=== PATIENT | female | born 1995 | race Caucasian/White ===

== ENCOUNTER 2017-08-01 16:57 | Emergency (ER) | payer BC, MEDICAID ==
[2017-08-01 17:13] VITALS: BP 133/82
--- NOTE | 2017-08-01 17:29 | EDM.PDOC ---
ED HPI GENERAL MEDICAL PROBLEM - General Chief Complaint: Lower Extremity Injury/Pain Stated Complaint: Right foot pain Time Seen by Provider: 08/01/17 17:10 Source of Information: Reports: Patient, Family, RN, RN Notes Reviewed History Limitations: Reports: No Limitations - History of Present Illness INITIAL COMMENTS - FREE TEXT/NARRATIVE: Patient presents to the ED at [facility] with worsening pain of the right foot. Patient states she sustained a 5th metatarsal fracture Jun 08. She was placed in a CAM walker since the injury. She has been following up with her PCP every couple of weeks with xrays. Patient states she is told the fracture is not healing correctly, so she is schedule to see a Manhole Stripper in a couple of weeks. Patient states the pain is unbareable and has been progressively getting worse. She has been using her CAM walker, but the pain today caused her to leave work. Onset: Gradual Duration: Getting Worse Location: Reports: Lower Extremity, Right Quality: Reports: Stabbing, Throbbing Severity: Moderate Improves with: Reports: Rest Worsens with: Reports: Movement Context: Reports: Trauma Associated Symptoms: Reports: No Other Symptoms Treatments [employer]: Reports: Acetaminophen, NSAIDS Right Feet Pain Score (Numeric/FACES): 9 - Related Data Allergies Allergy/AdvReac Type Severity Reaction Status Date / Time cephalexin [Cephalexin] Allergy Intermediate Rash Verified 08/01/17 17:07 latex Allergy Itching Verified 08/01/17 17:07 montelukast sodium Allergy Rash Verified 08/01/17 17:07 [From Singulair] Sulfa (Sulfonamide Allergy Fever Verified 08/01/17 17:07 Antibiotics) adhesives Allergy Mild Redness Uncoded 09/10/14 18:17 Home Meds: Home Meds Acetaminophen [Acetaminophen Extra Strength] 1,000 mg PO TID 11/01/14 [History] Naproxen 375 mg PO BID 08/01/17 [History] Past Medical History - Past Health History Medical/Surgical History: Denies Medical/Surgical History Musculoskeletal History: Reports: Fracture Social & Family History - Tobacco Use Smoking Status *Q: Current Every Day Smoker Years of Tobacco use: 7 Packs/Tins Daily: 0.5 Used Tobacco, but Quit: No Second Hand Smoke Exposure: Yes - Alcohol Use Days Per Week of Alcohol Use: 0 - Recreational Drug Use Recreational Drug Use: No Drug Use in Last 12 Months: Yes Recreational Drug Type: Reports: Marijuana/Hashish Recreational Drug Use Frequency: Rarely - Living Situation & Occupation Living situation: Reports: with Family Occupation: Student Review of Systems - Review of Systems Review Of Systems: See Below Constitutional: Denies: Chills, Fever, Weakness Respiratory: Denies: Shortness of Breath, Cough Cardiovascular: Denies: Chest Pain, Palpitations Musculoskeletal: Reports: Foot Pain Skin: Reports: No Symptoms Neurological: Reports: No Symptoms. Denies: Numbness, Paresthesia, Tingling ED EXAM, GENERAL - Physical Exam Exam: See Below Exam Limited By: No Limitations General Appearance: Alert, No Apparent Distress Respiratory/Chest: No Respiratory Distress, Lungs Clear, Normal Breath Sounds Cardiovascular: Normal Peripheral Pulses, Regular Rate, Rhythm Peripheral Pulses: 2+: Posterior Tibial (R), Dorsalis Pedis (R) Extremities: Normal Inspection, Normal Capillary Refill, Limited Range of Motion , Other (swelling along the lateral right foot; no obvious bone deformity; no erythema; tender to palpation). No: Increased Warmth, Pallor Neurological: Alert, Oriented Skin Exam: Warm, Dry, Intact, Normal Color, No Rash Course - Vital Signs Last Recorded V/S: Last Vital Signs Temp 37.5 C 08/01/17 17:09 Pulse 118 H 08/01/17 17:09 Resp 16 08/01/17 17:09 BP 133/82 08/01/17 17:09 Pulse Ox 99 08/01/17 17:09 - Orders/Labs/Meds Orders: Active Orders 24 hr Category Date Time Status Foot wo Cont Rt [CT] Stat Exams 08/01/17 17:22 Taken - Radiology Interpretation Free Text/Narrative:: CT Foot: Acute nondisplaced avulsion fracture in the posterior tubercle of the 5th metatarsal. Radiograph of the foot would be of benefit to get a better overview of the osseous structures and to serve as a baseline for potential follow up. See scanned report in EMR CT Results Date: 08/01/17 CT Results Time: 17:50 Departure - Departure Time of Disposition: 17:57 Disposition: Home, Self-Care 01 Condition: Good Clinical Impression: Avulsion fracture of metatarsal bone of right foot Qualifiers: Encounter type: sequela Fracture type: closed Qualified Code(s): S92.301S - Fracture of unspecified metatarsal bone(s), right foot, sequela - Discharge Information Instructions: Metatarsal Fracture, Avulsion Fracture of the Foot Referrals: Teresa Mckay PA-C [Primary Care Provider] - Forms: ED Department Discharge Additional Instructions: 1. Stay well hydrated and rest 2. Take pain medication sparingly, this can make you drowsy 3. May continue to alternate Tylenol/Advil as needed 4. Keep appointment with Manhole Stripper as scheduled 5. See your Primary as symptoms warrant 6. Call with any questions - Problem List Review Problem List Initiated/Reviewed/Updated: Yes - My Orders Last 24 Hours: My Active Orders 08/01/17 17:22 Foot wo Cont Rt [CT] Stat - Assessment/Plan Last 24 Hours: My Active Orders 08/01/17 17:22 Foot wo Cont Rt [CT] Stat Plan: Patient to be discharge home. Recommend keeping appointment with Podiatry already scheduled with Alfredo. Will send take home pack of Tramadol. Continue with CAM walker boot. Should see her primary again if additional pain medication is needed.
[2017-08-01] MEDS ORDERED: Take Home: traMADol 50 MG, 4 Tab Pack PO ONE (18:00)
== END 2017-08-01 18:05 | disposition home or self-care (01) ==
LOC: VM.ED 16:57
DX: S92.351S Displaced fracture of fifth metatarsal bone, right foot, sequela (principal); F17.210 Nicotine dependence, cigarettes, uncomplicated; Z91.040 Latex allergy status; Z88.8 Allergy status to other drugs, medicaments and biological substances; X58.XXXS Exposure to other specified factors, sequela
CPT/HCPCS: 73700; 99283; A9270

== ENCOUNTER 2018-01-18 18:50 | Emergency (ER) | payer MEDICAID ==
[2018-01-18] MEDS ORDERED: Take Home: Naproxen 500 MG Tab, 4 Tab Pack PO ONE (19:16)
--- NOTE | 2018-01-18 20:08 | EDM.PDOC ---
ED HPI GENERAL MEDICAL PROBLEM - General Chief Complaint: Back Pain or Injury Stated Complaint: mid back pain Time Seen by Provider: 01/18/18 19:45 Source of Information: Reports: Patient History Limitations: Reports: No Limitations - History of Present Illness INITIAL COMMENTS - FREE TEXT/NARRATIVE: Pt. states that she lifted a 20-30# box at work. She is an employee of [employer]. Pt. states that she immediately began experiencing pain to the mid region of her back. Denies numbness/tingling in her extremities. Denies any other recent trauma Onset: Today Location: Reports: Back Quality: Reports: Ache Severity: Moderate - Related Data Allergies Allergy/AdvReac Type Severity Reaction Status Date / Time cephalexin [Cephalexin] Allergy Intermediate Rash Verified 01/18/18 19:37 latex Allergy Itching Verified 01/18/18 19:37 montelukast sodium Allergy Rash Verified 01/18/18 19:37 [From Singulair] Sulfa (Sulfonamide Allergy Fever Verified 01/18/18 19:37 Antibiotics) adhesives Allergy Mild Redness Uncoded 01/18/18 19:37 Home Meds: Home Meds Lurasidone HCl [Latuda] 20 mg PO DAILY 10/08/17 [History] lamoTRIgine [Lamotrigine] 300 mg PO DAILY 10/08/17 [History] Past Medical History - Past Health History Medical/Surgical History: Denies Medical/Surgical History Respiratory History: Reports: Asthma Musculoskeletal History: Reports: Fracture Psychiatric History: Reports: Anxiety, Bipolar, Depression - Past Surgical History HEENT Surgical History: Reports: Adenoidectomy, Tonsillectomy Social & Family History - Tobacco Use Smoking Status *Q: Current Every Day Smoker Years of Tobacco use: 7 Packs/Tins Daily: 0.5 Used Tobacco, but Quit: No Second Hand Smoke Exposure: Yes - Alcohol Use Days Per Week of Alcohol Use: 0 - Recreational Drug Use Recreational Drug Use: No Drug Use in Last 12 Months: Yes Recreational Drug Type: Reports: Marijuana/Hashish Other Recreational Drug Type: Tried marijuana. Nothing at all in the last year. Recreational Drug Use Frequency: Rarely - Living Situation & Occupation Living situation: Reports: with Family Occupation: Student ED ROS GENERAL - Review of Systems Review Of Systems: See Below Constitutional: Reports: No Symptoms GI/Abdominal: Reports: No Symptoms : Reports: No Symptoms Musculoskeletal: Reports: Back Pain (mid back pain) Skin: Reports: No Symptoms Neurological: Reports: No Symptoms ED EXAM, GENERAL - Physical Exam Exam: See Below Exam Limited By: No Limitations General Appearance: Alert, WD/WN, No Apparent Distress Back Exam: Muscle Spasm, Other (thoracic level back pain) Extremities: Normal Inspection, Normal Range of Motion, Non-Tender, Normal Capillary Refill, No Pedal Edema Neurological: Alert, Oriented, CN II-XII Intact, Normal Cognition, Normal Gait, Normal Reflexes, No Motor/Sensory Deficits Course - Orders/Labs/Meds Meds: Medications Discontinued Medications Generic Name Dose Route Start Last Admin Trade Name Freq PRN Reason Stop Dose Admin Naproxen 1 packet 01/18/18 19:16 01/18/18 19:40 Take Home: Naproxen 500 Mg, 4 Tab Pack PO 01/18/18 19:17 1 packet ONETIME ONE Administration Departure - Departure Time of Disposition: 07:30 Disposition: Home, Self-Care 01 Condition: Good Clinical Impression: Thoracic back sprain - Discharge Information Instructions: Thoracic Strain, [id number] Forms: ED Department Discharge Additional Instructions: Naproxen 500mg twice daily for 10 days Ice back for 10-15 min every 1-2 hours Follow-up in clinic in 10-14 days, sooner if not improving.
[2018-01-19 03:05] VITALS: BP 112/72
== END 2018-01-18 19:49 | disposition home or self-care (01) ==
LOC: VM.ED 18:50
DX: S23.3XXA Sprain of ligaments of thoracic spine, initial encounter (principal); J45.909 Unspecified asthma, uncomplicated; F17.210 Nicotine dependence, cigarettes, uncomplicated; Z91.040 Latex allergy status; Z88.1 Allergy status to other antibiotic agents; Z88.8 Allergy status to other drugs, medicaments and biological substances; Z88.2 Allergy status to sulfonamides; Z91.048 Other nonmedicinal substance allergy status; Z79.899 Other long term (current) drug therapy; X50.9XXA Other and unspecified overexertion or strenuous movements or postures, initial encounter; Y93.89 Activity, other specified; Y99.0 Civilian activity done for income or pay
CPT/HCPCS: 99283; A9270

== ENCOUNTER 2018-06-27 13:54 | Inpatient (IN) | payer MEDICAID ==
[2018-06-27] MEDS ORDERED: methylPREDNISolone Sodium Succinate 40 MG/1 ML SDV IVPUSH ONE (14:06)
[2018-06-27] MEDS ORDERED: Albuterol 0.083% 2.5 MG/3 ML Neb Soln NEB PRN (14:06)
[2018-06-27] MEDS ORDERED: Sodium Chloride 0.9% 10 ML Syringe FLUSH PRN (14:07)
--- NOTE | 2018-06-27 14:10 | PCM.HP ---
H&P History of Present Illness - General Date of Service: 06/27/18 Admit Problem/Dx: Admission Diagnosis/Problem Admission Diagnosis/Problem Asthma with acute exacerbation Source of Information: Patient History Limitations: Reports: No Limitations - History of Present Illness Initial Comments - Free Text/Narative: Ms. Lawson is a 22 yo female who presented to clinic today for follow-up regarding atypical pneumonia and an asthma exacerbation. She had been seen 2 days prior for the same symptoms and denied any improvement since that visit. She has had 4 days of a cough productive of greenish sputum, chest pain with coughing, shortness of breath, and fever (Tmax 100.0). At the time of her visit 2 days ago, she was getting about 4 hours of relief from using her albuterol inhaler. Over the past 2 days, her cough has progressively worsened, as has her shortness of breath. She got a prescription for a nebulizer machine yesterday and has been needing the neb treatments every 2 hours. At the 2 hour harjit, she is having uncontrollable coughing episodes and shortness of breath. She is barely able to walk to her bathroom without getting short of breath. 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 She had been using OTC cough/cold medicines without much relief in symptoms. 2 days ago, she got prescriptions for prednisone and azithromycin and has been taking those as prescribed. Her appetite has been very poor and she has not been drinking much either. - Related Data Allergies/Adverse Reactions: Allergies Allergy/AdvReac Type Severity Reaction Status Date / Time cephalexin [Cephalexin] Allergy Intermediate Rash Verified 01/18/18 19:37 latex Allergy Itching Verified 01/18/18 19:37 montelukast sodium Allergy Rash Verified 01/18/18 19:37 [From Singulair] Sulfa (Sulfonamide AdvReac Fever Verified 06/27/18 14:16 Antibiotics) adhesives Allergy Mild Redness Uncoded 01/18/18 19:37 Home Medications: Home Meds Lurasidone HCl [Latuda] 120 mg PO DAILY 10/08/17 [History] Albuterol [Proventil Neb Soln] 2.5 mg INH Q4H PRN 06/27/18 [History] Albuterol [Ventolin HFA] 2 puff INH Q4H PRN 06/27/18 [History] Azithromycin [Zithromax] 500 mg PO DAILY 06/27/18 [History] Ondansetron HCl [Zofran] 4 mg PO Q6H PRN 06/27/18 [History] Testosterone Cypionate [Depo-Testosterone] 100 mg IM Q14D 06/27/18 [History] Zolpidem Tartrate [Ambien] 5 mg PO BEDTIME PRN 06/27/18 [History] predniSONE [Prednisone] 40 mg PO DAILY 06/27/18 [History] Past Medical History - Past Health History Medical/Surgical History: Denies Medical/Surgical History HEENT History: Reports: Other (See Below) Other HEENT History: parotid tumor Cardiovascular History: Reports: None Respiratory History: Reports: Asthma Gastrointestinal History: Reports: Chronic Constipation, Irritable Bowel Syndrome Genitourinary History: Reports: None Musculoskeletal History: Reports: Fracture Neurological History: Reports: Migraines Psychiatric History: Reports: ADHD, Anxiety, Bipolar, Depression Endocrine/Metabolic History: Reports: None Hematologic History: Reports: None Immunologic History: Reports: None Oncologic (Cancer) History: Reports: None Dermatologic History: Reports: None - Infectious Disease History Infectious Disease History: Reports: None - Past Surgical History HEENT Surgical History: Reports: Adenoidectomy, Tonsillectomy, Other (See Below ) (parotidectomy) Social & Family History - Family History Respiratory: Reports: Asthma Psychiatric: Reports: Bipolar - Tobacco Use Smoking Status *Q: Current Every Day Smoker - Alcohol Use Alcohol Use History: No Alcohol Use in Last Twelve Months: No - Recreational Drug Use Recreational Drug Use: No - Living Situation & Occupation Living situation: Reports: Single, with Family Occupation: Employed H&P Review of Systems - Review of Systems: Review Of Systems: See Below General: Reports: Fever, Malaise, Weakness, Decreased Appetite HEENT: Reports: No Symptoms Pulmonary: Reports: Shortness of Breath, Wheezing, Cough Cardiovascular: Reports: No Symptoms Gastrointestinal: Reports: No Symptoms Genitourinary: Reports: No Symptoms Musculoskeletal: Reports: No Symptoms Skin: Reports: No Symptoms Psychiatric: Reports: No Symptoms Neurological: Reports: No Symptoms Exam - Exam Exam: See Below - Exam General: Alert, Oriented, Cooperative HEENT: Conjunctiva Clear, Mucosa Moist & [place], Posterior Pharynx Clear, Pupils Equal, Pupils Reactive Neck: Supple, Trachea Midline. No: Lymphadenopathy, Thyromegaly Lungs: Normal Respiratory Effort, Crackles, Wheezing Cardiovascular: Regular Rate, Regular Rhythm, Normal S1, Normal S2 GI/Abdominal Exam: Normal Bowel Sounds, Soft, Non-Tender, No Organomegaly, No Distention, No Mass Extremities: Non-Tender, No Pedal Edema, Normal Capillary Refill Peripheral Pulses: 2+: Radial (L), Radial (R) Skin: Warm, Dry, Intact *Q Meaningful Use (ADM) - VTE *Q VTE Anticoagulation Contraindications: Med/TX Not Indicated/Need - Problem List (1) Asthma SNOMED Code(s): 505065304 ICD Code: J45.909 - UNSPECIFIED ASTHMA, UNCOMPLICATED Status: Chronic Current Visit: No Qualifiers: Asthma severity: mild Asthma persistence: intermittent Asthma complication type: with acute exacerbation Qualified Code(s): J45.21 - Mild intermittent asthma with (acute) exacerbation (2) Atypical pneumonia SNOMED Code(s): 263691514 ICD Code: J18.9 - PNEUMONIA, UNSPECIFIED ORGANISM Status: Acute Current Visit: Yes (3) Nicotine dependence SNOMED Code(s): 19544111 ICD Code: F17.200 - NICOTINE DEPENDENCE, UNSPECIFIED, UNCOMPLICATED Status : Chronic Current Visit: Yes Qualifiers: Nicotine product type: cigarettes Substance use status: uncomplicated Qualified Code(s): F17.210 - Nicotine dependence, cigarettes, uncomplicated (4) Dehydration SNOMED Code(s): 80184128 ICD Code: E86.0 - DEHYDRATION Status: Acute Current Visit: Yes (5) Hypokalemia SNOMED Code(s): 86348520 ICD Code: E87.6 - HYPOKALEMIA Status: Acute Current Visit: Yes (6) Bipolar 1 disorder SNOMED Code(s): 556379821 ICD Code: F31.9 - BIPOLAR DISORDER, UNSPECIFIED Status: Chronic Current Visit: Yes Problem List Initiated/Reviewed/Updated: Yes Orders Last 24hrs: Active Orders 24 hr Category Date Time Status Patient Status [ADT] Routine ADT 06/27/18 13:55 Active Notify Provider Vital Signs [RC] ASDIRECTED Care 06/27/18 14:07 Active Oxygen Therapy [RC] PRN Care 06/27/18 14:07 Active RT Aerosol Therapy [RC] ASDIRECTED Care 06/27/18 14:06 Active RT Aerosol Therapy [RC] ASDIRECTED Care 06/27/18 14:07 Active Up With Assistance [RC] ASDIRECTED Care 06/27/18 14:07 Active VTE/DVT Education [RC] PER UNIT ROUTINE Care 06/27/18 14:07 Active Vital Signs [RC] Q4H Care 06/27/18 14:07 Active Regular Diet [DIET] Diet 06/27/18 Dinner Active BASIC METABOLIC PANEL,BMP [CHEM] Routine Lab 06/28/18 05:11 Ordered CBC WITH AUTO DIFF [HEME] Routine Lab 06/28/18 05:11 Ordered Albuterol [Proventil Neb Soln] Med 06/27/18 14:06 Ordered 2.5 mg NEB Q2H PRN Albuterol [Proventil Neb Soln] Med 06/27/18 15:00 Ordered 2.5 mg NEB Q4HRRT Lactated Ringers [Ringers, Lactated] 1,000 ml Med 06/27/18 14:15 Ordered IV ASDIRECTED Sodium Chloride 0.9% [Saline Flush] Med 06/27/18 14:07 Ordered 10 ml FLUSH ASDIRECTED PRN methylPREDNISolone Sod Succ [Solu-MEDROL] Med 06/27/18 14:06 Once 40 mg IVPUSH ONETIME ONE predniSONE Med 06/28/18 08:00 Ordered 60 mg PO WITHBREAKFAST Anticoagulation Contraindications VTE [AST] Per Unit Oth 06/27/18 14:07 Ordered Routine Peripheral IV Insertion Adult [OM.PC] Routine Oth 06/27/18 14:07 Ordered Resuscitation Status Routine Resus Stat 06/27/18 14:07 Ordered Medication Orders Albuterol (Proventil Neb Soln) 2.5 mg NEB Q4HRRT KAREN Albuterol (Proventil Neb Soln) 2.5 mg NEB Q2H PRN PRN Reason: shortness of breath, cough Lactated Ringer's (Ringers, Lactated) 1,000 mls @ 100 mls/hr IV ASDIRECTED KAREN Stop: 06/28/18 00:16 Methylprednisolone Sodium Succinate (Solu-Medrol) 40 mg IVPUSH ONETIME ONE Stop: 06/27/18 14:07 Prednisone (Prednisone) 60 mg PO WITHBREAKFAST KAREN Sodium Chloride (Saline Flush) 10 ml FLUSH ASDIRECTED PRN PRN Reason: Keep Vein Open Assessment/Plan Comment:: 22 yo female admitted with an asthma exacerbation not responding to appropriate outpatient treatment. #1 Mild intermittent asthma with acute exacerbation - Admission recommended due to worsening despite appropriate therapy and peak flows at 40-50% of expected. - Will give a dose of solu-medrol today and then increase prednisone to 60 mg starting tomorrow. - Albuterol nebs scheduled every 4 hours and then PRN every 2 hours. #2 Atypical Pneumonia - CXR in clinic negative for any lobar pneumonia. - Diagnosis made based on crackles on exam. - Complete the azithromycin course. #3 Nicotine Dependence - 21 mg nicotine patch daily while hospitalized. #4 Dehydration #5 Hypokalemia - Will do LR @ 100 cc/hr x 10 hours. - Recheck labs in the am. - Can also eat and drink ad nitza. #6 Bipolar I - Continue home medications. Admitted to acute status due to above diagnoses/level of intervention required. Anticipate she will be able to return home in 1-2 days. Continue home medications apart from those she is not due for right now. Hold off on VTE prophylaxis until it is determined if she will be admitted >24 hours. Code status is full - discussed on admission.
[2018-06-27] MEDS ORDERED: Lactated Ringers 1,000 ML IV SCH (14:15)
[2018-06-27] MEDS: Albuterol 0.083% 2.5 MG/3 ML Neb Soln NEB SCH ×2 (14:49→19:08)
[2018-06-27] MEDS ORDERED: Zolpidem 5 MG Tab PO PRN (14:52)
[2018-06-27] MEDS ORDERED: Nicotine 21 MG/24 Hr Patch TRDERM SCH (15:00)
[2018-06-27] MEDS ORDERED: LURASIDONE HCL 120 MG PO SCH (20:00)
[2018-06-28] MEDS: Albuterol 0.083% 2.5 MG/3 ML Neb Soln NEB SCH ×3 (01:06→07:12)
[2018-06-28 07:05] LABS: CHLORIDE,CL 106 mmol/L (98-107); SODIUM,NA 137 mmol/L (136-145)
[2018-06-28 07:06] LABS: ANION GAP 13.4 mmol/L (10-20)
[2018-06-28] MEDS ORDERED: Ondansetron 4 MG Tab.DIS PO PRN (08:00)
[2018-06-28] MEDS ORDERED: Azithromycin 250 MG Tab PO SCH (08:00)
[2018-06-28] MEDS ORDERED: predniSONE 20 MG Tab PO SCH (08:00)
--- NOTE | 2018-06-28 08:17 | PCM.PN ---
- General Info Date of Service: 06/28/18 Subjective Update: Slept well overnight. Feels "wheezy" this morning. Breathing has improved and she has been up and around her room without any issues. Still coughing but spells are not as long nor as severe. No fever or chills. Appetite is some improved and she has been trying to drink more water. She is nauseous this morning and requesting her home zofran, but this is not unusual for her. She is interested in dismissal home today. - Review of Systems General: Reports: No Symptoms HEENT: Reports: No Symptoms Pulmonary: Reports: Shortness of Breath, Cough, Wheezing Cardiovascular: Reports: No Symptoms Gastrointestinal: Reports: No Symptoms Musculoskeletal: Reports: No Symptoms Skin: Reports: No Symptoms Neurological: Reports: No Symptoms - Patient Data Vitals - Most Recent: Last Vital Signs Temp 36.3 C 06/28/18 05:42 Pulse 65 06/28/18 05:42 Resp 20 06/28/18 05:42 BP 122/53 L 06/28/18 05:42 Pulse Ox 96 06/28/18 05:42 Weight - Most Recent: 91.626 kg I&O - Last 24 Hours: Intake & Output 06/27/18 06/28/18 06/28/18 22:59 06:59 14:59 Intake Total 613 2892 Output Total 200 700 Balance 413 2192 Lab Results Last 24 Hours: Laboratory Results - last 24 hr 06/28/18 06/28/18 Range/Units 06:18 06:18 WBC 7.1 (4.0-10.0) x10^3/uL RBC 5.50 (4.00-5.50) x10^6/uL Hgb 15.6 (12.0-16.0) g/dL Hct 45.0 (33.0-47.0) % MCV 81.8 (78.0-93.0) fL MCH 28.4 (26.0-32.0) pg MCHC 34.7 (32.0-36.0) g/dL RDW Coeff of [place] 14.4 (10.0-15.0) % Plt Count 188 D (130-400) x10^3/uL Neut % (Auto) 60.9 (50.0-80.0) % Lymph % (Auto) 28.6 (25.0-50.0) % [place] % (Auto) 10.4 (2.0-11.0) % Eos % (Auto) 0.0 (0.0-4.0) % Baso % (Auto) 0.1 L (0.2-1.2) % Sodium 137 (136-145) mmol/L Potassium 3.4 L (3.5-5.1) mmol/L Chloride 106 (98-107) mmol/L Carbon Dioxide 21 (21-32) mmol/L Anion Gap 13.4 (10-20) mmol/L BUN 12 (7-18) mg/dL Creatinine 1.0 (0.55-1.02) mg/dL Est Cr Clr Drug Dosing 77.49 mL/min Estimated GFR (MDRD) > 60 Glucose 141 H (74-106) mg/dL Calcium 8.8 (8.5-10.1) mg/dL Med Orders - Current: Current Medications Albuterol (Proventil Neb Soln) 2.5 mg NEB Q4HRRT [facility] Last Admin: 06/28/18 07:12 Dose: 2.5 mg Albuterol (Proventil Neb Soln) 2.5 mg NEB Q2H PRN PRN Reason: shortness of breath, cough Azithromycin (Zithromax) 250 mg PO DAILY [facility] Last Admin: 06/28/18 07:50 Dose: 250 mg Nicotine (Habitrol) 21 mg TRDERM DAILY@1500 [facility] Last Admin: 06/27/18 16:01 Dose: 21 mg Lurasidone Hcl [ Latuda] 120mg (Own Supply) 0 mg PO BEDTIME [facility] Last Admin: 06/27/18 21:16 Dose: 1 mg Ondansetron HCl (Zofran Odt) 4 mg PO Q6H PRN PRN Reason: Nausea Prednisone (Prednisone) 60 mg PO WITHBREAKFAST [facility] Last Admin: 06/28/18 07:50 Dose: 60 mg Sodium Chloride (Saline Flush) 10 ml FLUSH ASDIRECTED PRN PRN Reason: Keep Vein Open Zolpidem Tartrate (Ambien) 5 mg PO BEDTIME PRN PRN Reason: Sleep Last Admin: 06/27/18 21:24 Dose: 5 mg Discontinued Medications Lactated Ringer's (Ringers, Lactated) 1,000 mls @ 100 mls/hr IV ASDIRECTED KAREN Stop: 06/28/18 00:16 Last Admin: 06/27/18 14:49 Dose: 100 mls/hr Methylprednisolone Sodium Succinate (Solu-Medrol) 40 mg IVPUSH ONETIME ONE Stop: 06/27/18 14:07 Last Admin: 06/27/18 14:49 Dose: 40 mg - Exam General: Alert, Cooperative, No Acute Distress HEENT: Mucous Membr. Moist/[place] Neck: Supple, Trachea Midline, No Thyromegaly. No: Lymphadenopathy Lungs: Normal Respiratory Effort, Crackles, Wheezing Cardiovascular: Regular Rate, Regular Rhythm, No Murmurs GI/Abdominal Exam: Normal Bowel Sounds, Soft, Non-Tender, No Organomegaly, No Distention, No Mass Extremities: Non-Tender, No Pedal Edema, Normal Capillary Refill Peripheral Pulses: 2+: Radial (L), Radial (R) Skin: Warm, Dry, Intact - Problem List & Annotations (1) Asthma SNOMED Code(s): 274142602 Code(s): J45.909 - UNSPECIFIED ASTHMA, UNCOMPLICATED Status: Chronic Current Visit: No Qualifiers: Asthma severity: mild Asthma persistence: intermittent Asthma complication type: with acute exacerbation Qualified Code(s): J45.21 - Mild intermittent asthma with (acute) exacerbation (2) Atypical pneumonia SNOMED Code(s): 673381247 Code(s): J18.9 - PNEUMONIA, UNSPECIFIED ORGANISM Status: Acute Current Visit: Yes (3) Nicotine dependence SNOMED Code(s): 09709396 Code(s): F17.200 - NICOTINE DEPENDENCE, UNSPECIFIED, UNCOMPLICATED Status: Chronic Current Visit: Yes Qualifiers: Nicotine product type: cigarettes Substance use status: uncomplicated Qualified Code(s): F17.210 - Nicotine dependence, cigarettes, uncomplicated (4) Dehydration SNOMED Code(s): 70403967 Code(s): E86.0 - DEHYDRATION Status: Acute Current Visit: Yes (5) Hypokalemia SNOMED Code(s): 55530632 Code(s): E87.6 - HYPOKALEMIA Status: Acute Current Visit: Yes (6) Bipolar 1 disorder SNOMED Code(s): 838230422 Code(s): F31.9 - BIPOLAR DISORDER, UNSPECIFIED Status: Chronic Current Visit: Yes - Problem List Review Problem List Initiated/Reviewed/Updated: Yes - My Orders Last 24 Hours: My Active Orders 06/27/18 13:55 Patient Status [ADT] Routine 06/27/18 14:06 RT Aerosol Therapy [RC] 07,11,15,20,23,03 Albuterol [Proventil Neb Soln] 2.5 mg NEB Q2H PRN 06/27/18 14:07 Notify Provider Vital Signs [RC] 06,10,14,18,22,02 Oxygen Therapy [RC] .PRN RT Aerosol Therapy [RC] ASDIRECTED Up With Assistance [RC] ASDIRECTED VTE/DVT Education [RC] .PRN Vital Signs [RC] 06,10,14,18,22,02 Sodium Chloride 0.9% [Saline Flush] 10 ml FLUSH ASDIRECTED PRN Anticoagulation Contraindications VTE [AST] Per Unit Routine Peripheral IV Insertion Adult [OM.PC] Routine Resuscitation Status Routine 06/27/18 14:52 Zolpidem [Ambien] 5 mg PO BEDTIME PRN 06/27/18 15:00 Albuterol [Proventil Neb Soln] 2.5 mg NEB Q4HRRT Nicotine [Habitrol] 21 mg TRDERM DAILY@1500 06/27/18 20:00 Lurasidone HCl [Latuda] 0 mg PO BEDTIME 06/27/18 Dinner Regular Diet [DIET] 06/28/18 08:00 Azithromycin [Zithromax] 250 mg PO DAILY Ondansetron [Zofran ODT] 4 mg PO Q6H PRN predniSONE 60 mg PO WITHBREAKFAST - Assessment Assessment:: 22 yo female admitted with asthma exacerbation after failing outpatient treatment. Doing much better this morning and wishes to return home; has not walked in the hallways at all yet. - Plan Plan:: #1 Mild intermittent asthma with acute exacerbation - Admission recommended due to worsening despite appropriate therapy and peak flows at 40-50% of expected. - Doing much better this morning. - Do recommend she walk in the hallway today and see how that goes. If she does ok with that, then she likely can be dismissed home today. - Continue prednisone 60 mg daily, as well as albuterol nebs scheduled every 4 hours and then PRN every 2 hours. #2 Atypical Pneumonia - CXR in clinic negative for any lobar pneumonia. - Diagnosis made based on crackles on exam. - Complete the azithromycin course. #3 Nicotine Dependence - 21 mg nicotine patch daily while hospitalized. #4 Dehydration #5 Hypokalemia - Resolved. - Can do PO fluids today. #6 Bipolar I - Continue home medications. Admitted to acute status due to above diagnoses/level of intervention required. Anticipate dismissal later today or tomorrow. If she does ok walking in the halls this morning, then likely can be dismissed this morning. Continue home medications apart from those she is not due for right now. No VTE prophylaxis indicated as her stay will be <48 hours. Code status is full - discussed on admission.
[2018-06-28 09:34] VITALS: BP 128/76
--- NOTE | 2018-06-28 10:26 | PCM.DCSUM1 ---
Discharge Summary - Hospital Course Brief History: Ms. Lawson is a 22 yo female admitted with an asthma exacerbation after failing to respond to 2 days of outpatient treatment with prednisone and azithromycin. - Discharge Data Discharge Date: 06/28/18 Discharge Disposition: Home, Self-Care 01 Condition: Good - Discharge Diagnosis/Problem(s) (1) Asthma SNOMED Code(s): 171062992 ICD Code: J45.909 - UNSPECIFIED ASTHMA, UNCOMPLICATED Status: Chronic Current Visit: No Qualifiers: Asthma severity: mild Asthma persistence: intermittent Asthma complication type: with acute exacerbation Qualified Code(s): J45.21 - Mild intermittent asthma with (acute) exacerbation (2) Atypical pneumonia SNOMED Code(s): 067890932 ICD Code: J18.9 - PNEUMONIA, UNSPECIFIED ORGANISM Status: Acute Current Visit: Yes (3) Nicotine dependence SNOMED Code(s): 27959485 ICD Code: F17.200 - NICOTINE DEPENDENCE, UNSPECIFIED, UNCOMPLICATED Status : Chronic Current Visit: Yes Qualifiers: Nicotine product type: cigarettes Substance use status: uncomplicated Qualified Code(s): F17.210 - Nicotine dependence, cigarettes, uncomplicated (4) Dehydration SNOMED Code(s): 73403448 ICD Code: E86.0 - DEHYDRATION Status: Acute Current Visit: Yes (5) Hypokalemia SNOMED Code(s): 96633084 ICD Code: E87.6 - HYPOKALEMIA Status: Acute Current Visit: Yes (6) Bipolar 1 disorder SNOMED Code(s): 441786671 ICD Code: F31.9 - BIPOLAR DISORDER, UNSPECIFIED Status: Chronic Current Visit: Yes - Patient Summary/Data Operative Procedure(s) Performed: none Complications: none Consults: none Labs Pending at D/C: none Recommended Follow-up Testing/Procedures: none Planned Operative Procedure(s) after DC: none Hospital Course: Patient was given an IV dose of solu-medrol on the day of admission and prednisone dose was increased to 60 mg daily. She was given albuterol nebs every 4 hours scheduled and every 2 hours as needed. The azithromycin was continued. By the morning after admission, she was doing much better. Her breathing had improved and she was able to ambulate in the halls without any issues. Still wheezing and coughing but these also improved. She felt ready for dismissal home and will follow-up in clinic early next week. - Discharge Plan *PRESCRIPTION DRUG MONITORING PROGRAM REVIEWED*: No *COPY OF PRESCRIPTION DRUG MONITORING REPORT IN PATIENT GEO: No Home Medications: Home Meds Lurasidone HCl [Latuda] 120 mg PO DAILY 10/08/17 [History] Albuterol [Proventil] 2.5 mg INH Q4H PRN 06/27/18 [History] Albuterol [Ventolin HFA] 2 puff INH Q4H PRN 06/27/18 [History] Azithromycin [Zithromax] 500 mg PO DAILY 06/27/18 [History] Ondansetron HCl [Zofran] 4 mg PO Q6H PRN 06/27/18 [History] Testosterone Cypionate [Depo-Testosterone] 100 mg IM Q14D 06/27/18 [History] Zolpidem Tartrate [Ambien] 5 mg PO BEDTIME PRN 06/27/18 [History] predniSONE 60 mg PO WITHBREAKFAST #15 tablet 06/28/18 [Rx] - Discharge Summary/Plan Comment DC Time >30 min.: No - General Info Date of Service: 06/28/18 Subjective Update: See progress note from today. Patient walked in the hallways without any issues and is stable for dismissal home. - Patient Data Vitals - Most Recent: Last Vital Signs Temp 37.0 C 06/28/18 09:32 Pulse 71 06/28/18 09:32 Resp 18 06/28/18 09:32 BP 128/76 06/28/18 09:32 Pulse Ox 98 06/28/18 09:32 Weight - Most Recent: 91.626 kg I&O - Last 24 hours: Intake & Output 06/27/18 06/28/18 06/28/18 22:59 06:59 14:59 Intake Total 613 2892 Output Total 200 700 Balance 413 2192 Lab Results - Last 24 hrs: Laboratory Results - last 24 hr 06/28/18 06/28/18 Range/Units 06:18 06:18 WBC 7.1 (4.0-10.0) x10^3/uL RBC 5.50 (4.00-5.50) x10^6/uL Hgb 15.6 (12.0-16.0) g/dL Hct 45.0 (33.0-47.0) % MCV 81.8 (78.0-93.0) fL MCH 28.4 (26.0-32.0) pg MCHC 34.7 (32.0-36.0) g/dL RDW Coeff of [place] 14.4 (10.0-15.0) % Plt Count 188 D (130-400) x10^3/uL Neut % (Auto) 60.9 (50.0-80.0) % Lymph % (Auto) 28.6 (25.0-50.0) % [place] % (Auto) 10.4 (2.0-11.0) % Eos % (Auto) 0.0 (0.0-4.0) % Baso % (Auto) 0.1 L (0.2-1.2) % Sodium 137 (136-145) mmol/L Potassium 3.4 L (3.5-5.1) mmol/L Chloride 106 (98-107) mmol/L Carbon Dioxide 21 (21-32) mmol/L Anion Gap 13.4 (10-20) mmol/L BUN 12 (7-18) mg/dL Creatinine 1.0 (0.55-1.02) mg/dL Est Cr Clr Drug Dosing 77.49 mL/min Estimated GFR (MDRD) > 60 Glucose 141 H (74-106) mg/dL Calcium 8.8 (8.5-10.1) mg/dL Med Orders - Current: Current Medications Albuterol (Proventil Neb Soln) 2.5 mg NEB Q4HRRT [facility] Last Admin: 06/28/18 07:12 Dose: 2.5 mg Albuterol (Proventil Neb Soln) 2.5 mg NEB Q2H PRN PRN Reason: shortness of breath, cough Azithromycin (Zithromax) 250 mg PO DAILY [facility] Last Admin: 06/28/18 07:50 Dose: 250 mg Nicotine (Habitrol) 21 mg TRDERM DAILY@1500 [facility] Last Admin: 06/27/18 16:01 Dose: 21 mg Lurasidone Hcl [ Latuda] 120mg (Own Supply) 0 mg PO BEDTIME [facility] Last Admin: 06/27/18 21:16 Dose: 1 mg Ondansetron HCl (Zofran Odt) 4 mg PO Q6H PRN PRN Reason: Nausea Last Admin: 06/28/18 08:19 Dose: 4 mg Prednisone (Prednisone) 60 mg PO WITHBREAKFAST KAREN Last Admin: 06/28/18 07:50 Dose: 60 mg Sodium Chloride (Saline Flush) 10 ml FLUSH ASDIRECTED PRN PRN Reason: Keep Vein Open Zolpidem Tartrate (Ambien) 5 mg PO BEDTIME PRN PRN Reason: Sleep Last Admin: 06/27/18 21:24 Dose: 5 mg Discontinued Medications Lactated Ringer's (Ringers, Lactated) 1,000 mls @ 100 mls/hr IV ASDIRECTED KAREN Stop: 06/28/18 00:16 Last Admin: 06/27/18 14:49 Dose: 100 mls/hr Methylprednisolone Sodium Succinate (Solu-Medrol) 40 mg IVPUSH ONETIME ONE Stop: 06/27/18 14:07 Last Admin: 06/27/18 14:49 Dose: 40 mg *Q Meaningful Use (DIS) - VTE *Q VTE Anticoagulation Contraindications: Med/TX Not Indicated/Need
== END 2018-06-28 10:55 | disposition home or self-care (01) | DRG 194 ==
LOC: VM.MS 13:54
PROVIDERS: ADMIT Family Medicine; ATTEND Family Medicine
DX: J18.9 Pneumonia, unspecified organism (principal); J45.21 Mild intermittent asthma with (acute) exacerbation; E86.0 Dehydration; E87.6 Hypokalemia; F31.9 Bipolar disorder, unspecified; F17.210 Nicotine dependence, cigarettes, uncomplicated; Z88.2 Allergy status to sulfonamides; Z88.8 Allergy status to other drugs, medicaments and biological substances; Z79.52 Long term (current) use of systemic steroids; Z79.899 Other long term (current) drug therapy
CPT/HCPCS: 36415; 80048; 85025; 94640; A9270-GY; J2920; J7120; J7613-GY

== ENCOUNTER 2018-12-02 16:47 | Emergency (ER) | payer MEDICAID ==
--- NOTE | 2018-12-02 16:53 | EDM.PDOC ---
ED HPI GENERAL MEDICAL PROBLEM - General Chief Complaint: Lower Extremity Injury/Pain Stated Complaint: Right ankle pain/injury Time Seen by Provider: 12/02/18 16:52 Source of Information: Reports: Patient, EMS Notes Reviewed, RN, RN Notes Reviewed History Limitations: Reports: No Limitations - History of Present Illness INITIAL COMMENTS - FREE TEXT/NARRATIVE: Patient presents to the emergency room at [facility] via EMS for the evaluation of a right ankle injury. The patient states he was getting out of his vehicle at work when he slipped on the ice causing an inversion injury to the right ankle. The patient states he felt immediate pain. The patient states most of the pain is along the top of the ankle. The patient denies any previous injury or trauma. No previous right foot/ankle surgeries. The patient denies any numbness tingling or paresthesia to the right lower extremity. The patient has full range of motion of the affected area. Denies any head injury or trauma. No neck or back pain/injury. The patient states this is a Worker's Comp. injury. Otherwise no other concerns today. Onset: Today Onset Date: 12/02/18 Onset Time: 16:15 Right Ankle Pain Score (Numeric/FACES): 10 - Related Data Allergies Allergy/AdvReac Type Severity Reaction Status Date / Time cephalexin [Cephalexin] Allergy Intermediate Rash Verified 12/02/18 16:54 latex Allergy Itching Verified 12/02/18 16:54 montelukast sodium Allergy Rash Verified 12/02/18 16:54 [From Singulair] Sulfa (Sulfonamide AdvReac Fever Verified 12/02/18 16:54 Antibiotics) adhesives Allergy Mild Redness Uncoded 12/02/18 16:54 Home Meds: Home Meds Lurasidone HCl [Latuda] 120 mg PO DAILY 10/08/17 [History] Albuterol [Proventil] 2.5 mg INH Q4H PRN 06/27/18 [History] Albuterol [Ventolin HFA] 2 puff INH Q4H PRN 06/27/18 [History] Azithromycin [Zithromax] 500 mg PO DAILY 06/27/18 [History] Ondansetron HCl [Zofran] 4 mg PO Q6H PRN 06/27/18 [History] Testosterone Cypionate [Depo-Testosterone] 100 mg IM Q14D 06/27/18 [History] Zolpidem Tartrate [Ambien] 5 mg PO BEDTIME PRN 06/27/18 [History] predniSONE 60 mg PO WITHBREAKFAST #15 tablet 06/28/18 [Rx] Past Medical History - Past Health History Medical/Surgical History: Denies Medical/Surgical History HEENT History: Reports: Other (See Below) Other HEENT History: parotid tumor Cardiovascular History: Reports: None Respiratory History: Reports: Asthma Gastrointestinal History: Reports: Chronic Constipation, Irritable Bowel Syndrome Genitourinary History: Reports: None Musculoskeletal History: Reports: Fracture Neurological History: Reports: Migraines Psychiatric History: Reports: ADHD, Anxiety, Bipolar, Depression Endocrine/Metabolic History: Reports: None Hematologic History: Reports: None Immunologic History: Reports: None Oncologic (Cancer) History: Reports: None Dermatologic History: Reports: None - Infectious Disease History Infectious Disease History: Reports: None - Past Surgical History HEENT Surgical History: Reports: Adenoidectomy, Tonsillectomy, Other (See Below ) (parotidectomy) Social & Family History - Family History Respiratory: Reports: Asthma Psychiatric: Reports: Bipolar - Caffeine Use Caffeine Use: Reports: Coffee, Energy Drinks, Soda - Living Situation & Occupation Living situation: Reports: Single, with Family Occupation: Employed Review of Systems - Review of Systems Review Of Systems: See Below Constitutional: Denies: Chills, Fever Respiratory: Denies: Shortness of Breath, Cough Cardiovascular: Denies: Chest Pain, Palpitations Musculoskeletal: Reports: Foot Pain, Joint Swelling, Muscle Pain, Muscle Stiffness Skin: Reports: No Symptoms Neurological: Reports: No Symptoms ED EXAM, GENERAL - Physical Exam Exam: See Below Exam Limited By: No Limitations General Appearance: Alert, No Apparent Distress Head: Atraumatic, Normocephalic Respiratory/Chest: No Respiratory Distress, Lungs Clear, Normal Breath Sounds Cardiovascular: Normal Peripheral Pulses, Regular Rate, Rhythm Extremities: No Pedal Edema, Normal Capillary Refill, Joint Swelling, Limited Range of Motion Neurological: Alert, Oriented Skin Exam: Warm, Dry, Intact, Normal Color Course - Vital Signs Last Recorded V/S: Last Vital Signs Temp 36.5 C 12/02/18 16:54 Pulse 65 12/02/18 16:54 Resp 16 12/02/18 16:54 BP 155/77 H 12/02/18 16:54 Pulse Ox 99 12/02/18 16:54 - Orders/Labs/Meds Orders: Active Orders 24 hr Category Date Time Status Ankle Min 3V Rt [CR] Stat Exams 12/02/18 16:51 Taken Meds: Medications Discontinued Medications Generic Name Dose Route Start Last Admin Trade Name Chris PRN Reason Stop Dose Admin Oxycodone HCl 5 mg 12/02/18 17:11 12/02/18 17:17 Oxycodone PO 12/02/18 17:12 5 mg ONETIME ONE Administration Departure - Departure Time of Disposition: 17:25 Disposition: Home, Self-Care 01 Condition: Good Clinical Impression: Right ankle sprain Qualifiers: Encounter type: initial encounter Involved ligament of ankle: unspecified ligament Qualified Code(s): S93.401A - Sprain of unspecified ligament of right ankle, initial encounter - Discharge Information *PRESCRIPTION DRUG MONITORING PROGRAM REVIEWED*: Not Applicable *COPY OF PRESCRIPTION DRUG MONITORING REPORT IN PATIENT GEO: Not Applicable Instructions: Ankle Sprain Forms: ED Department Discharge Additional Instructions: Stay well-hydrated and breast Keep splint on at all times Rest elevate and ice as much as possible May alternate Tylenol/Advil as needed See her primary as symptoms warrant. - Problem List Review Problem List Initiated/Reviewed/Updated: Yes - My Orders Last 24 Hours: My Active Orders 12/02/18 16:51 Ankle Min 3V Rt [CR] Stat - Assessment/Plan Last 24 Hours: My Active Orders 12/02/18 16:51 Ankle Min 3V Rt [CR] Stat Assessment:: Right ankle sprain Plan: Assessment and x-ray findings discussed with patient. The patient will be placed in a right ankle splint. Recommend rest elevation and ice for the next several days. I will take the patient out of work for the next 3 days to ensure proper healing. Patient may take [id number] Tylenol/Advil as needed. Patient to follow-up with primary care provider as symptoms warrant.
[2018-12-02 16:59] VITALS: BP 155/77
[2018-12-02] MEDS ORDERED: oxyCODONE 5 MG Tab PO ONE (17:11)
--- NOTE | 2018-12-02 18:11 | CR ---
[id number] RAD/RAD Ankle Right 3V Min EXAM: RIGHT ANKLE 3 VIEWS INDICATION: Fall with ankle pain. COMPARISON: None. DISCUSSION: There is marked soft tissue swelling along the medial and anterior aspects of the ankle. No fracture or dislocation is identified. IMPRESSION: 1. Significant soft tissue swelling. No fracture identified. Stevo Pittman MD 12/02/18 [id number] Thank you for allowing us to participate in the care of your patient.
== END 2018-12-02 17:47 | disposition home or self-care (01) ==
LOC: EDSEX 16:47 → VM.ED 16:47
DX: S93.401A Sprain of unspecified ligament of right ankle, initial encounter (principal); Z88.1 Allergy status to other antibiotic agents; Z91.040 Latex allergy status; Z88.2 Allergy status to sulfonamides; Z79.899 Other long term (current) drug therapy; W00.2XXA Other fall from one level to another due to ice and snow, initial encounter
CPT/HCPCS: 73610; 99284; A9270

== ENCOUNTER 2020-12-13 10:03 | Emergency (ER) | payer OTHER ==
[2020-12-13 10:11] VITALS: BP 142/86; PULSE 108
[2020-12-13] MEDS ORDERED: Sodium Chloride 0.9% 1,000 ML IV ONE (10:12)
[2020-12-13] MEDS ORDERED: Ondansetron 4 MG/2 ML SDV IVPUSH ONE (10:12)
[2020-12-13] MEDS ORDERED: Sodium Chloride 0.9% 10 ML Syringe FLUSH PRN (10:12)
--- NOTE | 2020-12-13 10:20 | EDM.PDOC ---
ED HPI GENERAL MEDICAL PROBLEM - General Chief Complaint: Gastrointestinal Problem Stated Complaint: POSSIBLY DEHYDRATED Time Seen by Provider: 12/13/20 10:05 Source of Information: Reports: Patient History Limitations: Reports: No Limitations - History of Present Illness INITIAL COMMENTS - FREE TEXT/NARRATIVE: Patient comes into the emergency department with complaints of nausea and vomiting. Patient states that he started having nausea and vomiting approximately 24 hours ago. He also states that he has an upset stomach. 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 Patient states that he does believe that he had a low grade fever for short period of time but that has resolved. Patient states he feels fatigue nausea and vomiting and possibly dehydrated due to the vomiting. He normally has to have IV fluids when he does puke for he is not able to keep enough fluid down. Patient denies any chest pain, shortness of breath, dizziness, lightheadedness, abdominal pain, peripheral edema or genitourinary concerns. Patient states been relatively healthy has no concerns for COVID-19. Onset: Sudden, Gradual Quality: Reports: Ache Severity: Mild Improves with: Reports: None Worsens with: Reports: None Associated Symptoms: Reports: Fever/Chills, Loss of Appetite, Malaise, Nausea/Vomiting - Related Data Allergies Allergy/AdvReac Type Severity Reaction Status Date / Time cephalexin [Cephalexin] Allergy Intermediate Rash Verified 12/13/20 10:12 latex Allergy Itching Verified 12/13/20 10:12 montelukast sodium Allergy Rash Verified 12/13/20 10:12 [From [facility]] Sulfa (Sulfonamide AdvReac Fever Verified 12/13/20 10:12 Antibiotics) adhesives Allergy Mild Redness Uncoded 12/13/20 10:12 Home Meds: Home Meds Lurasidone HCl [Latuda] 120 mg PO DAILY 10/08/17 [History] Albuterol [Proventil] 2.5 mg INH Q4H PRN 06/27/18 [History] Albuterol [Ventolin HFA] 2 puff INH Q4H PRN 06/27/18 [History] Azithromycin [Zithromax] 500 mg PO DAILY 06/27/18 [History] Testosterone Cypionate [Depo-Testosterone] 100 mg IM Q14D 06/27/18 [History] Zolpidem Tartrate [Ambien] 5 mg PO BEDTIME PRN 06/27/18 [History] ondansetron HCL [Zofran] 4 mg PO Q6H PRN 06/27/18 [History] predniSONE 60 mg PO WITHBREAKFAST #15 tablet 06/28/18 [Rx] Past Medical History - Past Health History Medical/Surgical History: Denies Medical/Surgical History HEENT History: Reports: Other (See Below) Other HEENT History: parotid tumor Cardiovascular History: Reports: None Respiratory History: Reports: Asthma Gastrointestinal History: Reports: Chronic Constipation, Irritable Bowel Syndrome Genitourinary History: Reports: None Musculoskeletal History: Reports: Fracture Neurological History: Reports: Migraines Psychiatric History: Reports: ADHD, Anxiety, Bipolar, Depression Endocrine/Metabolic History: Reports: None Hematologic History: Reports: None Immunologic History: Reports: None Oncologic (Cancer) History: Reports: None Dermatologic History: Reports: None - Infectious Disease History Infectious Disease History: Reports: None - Past Surgical History HEENT Surgical History: Reports: Adenoidectomy, Tonsillectomy, Other (See Below) Social & Family History - Family History Respiratory: Reports: Asthma Psychiatric: Reports: Bipolar - Caffeine Use Caffeine Use: Reports: Coffee, Energy Drinks, Soda - Living Situation & Occupation Living situation: Reports: Single, with Family Occupation: Employed ED ROS GENERAL - Review of Systems Review Of Systems: Comprehensive ROS is negative, except as noted in HPI. Constitutional: Reports: Fever, Chills, Malaise, Fatigue HEENT: Reports: No Symptoms Respiratory: Reports: No Symptoms Cardiovascular: Reports: No Symptoms Endocrine: Reports: No Symptoms GI/Abdominal: Reports: No Symptoms : Reports: No Symptoms Musculoskeletal: Reports: No Symptoms Skin: Reports: No Symptoms Neurological: Reports: No Symptoms Psychiatric: Reports: No Symptoms Hematologic/Lymphatic: Reports: No Symptoms Immunologic: Reports: No Symptoms ED EXAM, GENERAL - Physical Exam Exam: See Below Exam Limited By: No Limitations General Appearance: Alert, WD/WN, No Apparent Distress Eye Exam: Bilateral Eye: EOMI, PERRL Throat/Mouth: Normal Inspection, Normal Lips, Normal Teeth, Normal Voice, Other (dry mucus membranes) Head: Atraumatic, Normocephalic Neck: Normal Inspection, Supple, Non-Tender, Full Range of Motion Respiratory/Chest: No Respiratory Distress, Lungs Clear, Normal Breath Sounds, Chest Non-Tender Cardiovascular: Normal Peripheral Pulses, Regular Rate, Rhythm, No Edema GI/Abdominal: Normal Bowel Sounds, Soft, Non-Tender Extremities: Normal Inspection, Normal Range of Motion, Non-Tender, Normal Capillary Refill Neurological: Alert, Oriented, Normal Gait Psychiatric: Normal Affect, Normal Mood Skin Exam: Warm, Dry, Intact, Normal Color Course - Vital Signs Last Recorded V/S: Last Vital Signs Temp 36.2 C 12/13/20 10:03 Pulse 108 H 12/13/20 10:03 Resp 16 12/13/20 10:03 BP 142/86 H 12/13/20 10:03 Pulse Ox 97 12/13/20 10:03 - Orders/Labs/Meds Orders: Active Orders 24 hr Category Date Time Status Sodium Chloride 0.9% [Normal Saline] 1,000 ml Med 12/13/20 10:12 Ordered IV ONETIME Sodium Chloride 0.9% [Saline Flush] Med 12/13/20 10:12 Ordered 10 ml FLUSH ASDIRECTED PRN Peripheral IV Insertion Adult [OM.PC] Stat Oth 12/13/20 10:12 Ordered Medication Orders Sodium Chloride (Normal Saline) 1,000 mls @ 1,000 mls/hr IV ONETIME ONE Stop: 12/13/20 11:11 Last Admin: 12/13/20 10:22 Dose: 1,000 mls/hr Documented by: Sodium Chloride (Saline Flush) 10 ml FLUSH ASDIRECTED PRN PRN Reason: Keep Vein Open Meds: Medications Generic Name Dose Route Start Last Admin Trade Name Freq PRN Reason Stop Dose Admin Sodium Chloride 1,000 mls @ 1,000 mls/hr 12/13/20 10:12 12/13/20 10:22 Normal Saline IV 12/13/20 11:11 1,000 mls/hr ONETIME ONE Administration Sodium Chloride 10 ml 12/13/20 10:12 Saline Flush FLUSH ASDIRECTED PRN Keep Vein Open Discontinued Medications Generic Name Dose Route Start Last Admin Trade Name Freq PRN Reason Stop Dose Admin Ondansetron HCl 4 mg 12/13/20 10:12 12/13/20 10:22 Zofran IVPUSH 12/13/20 10:13 4 mg ONETIME ONE Administration Departure - Departure Time of Disposition: 11:30 Disposition: Home, Self-Care 01 Condition: Good Clinical Impression: Viral gastroenteritis - Discharge Information *PRESCRIPTION DRUG MONITORING PROGRAM REVIEWED*: Not Applicable *COPY OF PRESCRIPTION DRUG MONITORING REPORT IN PATIENT GEO: Not Applicable Instructions: Viral Gastroenteritis, Adult, [id number] Forms: ED Department Discharge Additional Instructions: 1. rest 2. increase your water intake 3. Continue all at home medications 4. Activity and diet as tolerated 5. Can take over the counter Tylenol for any pain or discomfort 6. Follow up with PCP if symptoms continue, return, or progress 7. Call with any questions or concerns Sepsis Event Note (ED) - Evaluation Sepsis Screening Result: No Definite Risk - Focused Exam Vital Signs: Vital Signs Temp Pulse Resp BP Pulse Ox 12/13/20 10:03 36.2 C 108 H 16 142/86 H 97 - My Orders Last 24 Hours: My Active Orders 12/13/20 10:12 Sodium Chloride 0.9% [Normal Saline] 1,000 ml IV ONETIME Sodium Chloride 0.9% [Saline Flush] 10 ml FLUSH ASDIRECTED PRN Peripheral IV Insertion Adult [OM.PC] Stat - Assessment/Plan Last 24 Hours: My Active Orders 12/13/20 10:12 Sodium Chloride 0.9% [Normal Saline] 1,000 ml IV ONETIME Sodium Chloride 0.9% [Saline Flush] 10 ml FLUSH ASDIRECTED PRN Peripheral IV Insertion Adult [OM.PC] Stat Assessment:: 1. dehydration 2. nausea/vomiting Plan: 1. IV initiated in the emergency department 2. IV fluids provided 3. Zofran given in the ER to help with nausea 4. Patient and nursing staff was updated regarding the plan of care 5. Education provided the patient regarding activity, diet, rest, [id number] medication modalities, and follow-up care was provided 6. Patient and family are agreeable to the above plan of care 7. All questions and concerns were addressed with the patient and family prior t o discharge
== END 2020-12-13 11:12 | disposition home or self-care (01) ==
LOC: VM.ED 10:03 → EDSEX 10:03 → VM.ED 11:12
DX: A08.4 Viral intestinal infection, unspecified (principal); J45.909 Unspecified asthma, uncomplicated; Z88.1 Allergy status to other antibiotic agents; Z91.040 Latex allergy status; Z88.8 Allergy status to other drugs, medicaments and biological substances; Z88.2 Allergy status to sulfonamides; Z91.048 Other nonmedicinal substance allergy status; Z79.899 Other long term (current) drug therapy
CPT/HCPCS: 96374; 99283-25; 99284; J2405; J7030